=== PATIENT | female | born 1990 | race American Indian/Alaskan Native ===

== ENCOUNTER 2021-01-09 11:20 | Emergency (ER) | payer SELFPAY ==
[2021-01-09 11:40] VITALS: BP 145/103
[2021-01-09] MEDS ORDERED: IBUPROFEN 800 MG TAB PO ONE (13:06)
[2021-01-09] MEDS ORDERED: ACETAMINOPHEN 500 MG TAB PO ONE (13:06)
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
[2021-01-09] MEDS ORDERED: IBUPROFEN 800 MG TAB ONE (15:10)
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
== END 2021-01-09 17:25 | disposition home or self-care (01) ==
LOC: ED 11:20
DX: S09.90XA Unspecified injury of head, initial encounter (principal); S63.602A Unspecified sprain of left thumb, initial encounter; S39.012A Strain of muscle, fascia and tendon of lower back, initial encounter; Z79.1 Long term (current) use of non-steroidal anti-inflammatories (NSAID); Z79.899 Other long term (current) drug therapy; Z91.018 Allergy to other foods; V49.49XA Driver injured in collision with other motor vehicles in traffic accident, initial encounter; Y93.89 Activity, other specified; Y92.410 Unspecified street and highway as the place of occurrence of the external cause; Y99.8 Other external cause status
CPT/HCPCS: 70450; 72100